=== PATIENT | female | born 1980 | race Two or more races ===

== ENCOUNTER 2020-01-01 06:10 | Day surgery (SDC) | payer OTHER ==
[~2020-01-01 06:10] MED LIST: INTEGRA PLUS C1 EACH PO
[2020-01-01] MEDS ORDERED: Tylenol #3 PO (17:20)
[2020-01-01] MEDS ORDERED: MORGIDOX100 MG PO (17:20)
== END 2020-01-01 20:45 | disposition home or self-care (01) ==
LOC: CIR.AMB 06:10
PROVIDERS: ATTEND Obstetrics & Gynecology
DX: D25.0 Submucous leiomyoma of uterus (principal); N71.1 Chronic inflammatory disease of uterus; N84.0 Polyp of corpus uteri; Z20.828 Contact with and (suspected) exposure to other viral communicable diseases

== ENCOUNTER 2020-09-16 11:24 | Inpatient (IN) | payer OTHER ==
[~2020-09-16 11:24] MED LIST changes: +ADIPEX-P37.5 MG PO; +MORGIDOX100 MG PO; +PROTONIX20 MG PO; +Tylenol #3 PO
[2020-09-17] MEDS ORDERED: NAPR500T14 PO (08:44)
[2020-09-17] MEDS ORDERED: Tylenol #3 PO (08:44)
== END 2020-09-17 10:50 | disposition home or self-care (01) | DRG 743 ==
LOC: CIR.AMB 11:24 → SURH 23:09 → O/R 23:09
PROVIDERS: ADMIT Obstetrics & Gynecology; ATTEND Obstetrics & Gynecology
PROC: 0UT2FZZ Resection of Bilateral Ovaries, Via Natural or Artificial Opening With Percutaneous Endoscopic Assistance (ICD-10-PCS; 2020-09-16)
PROC: 0UT7FZZ Resection of Bilateral Fallopian Tubes, Via Natural or Artificial Opening With Percutaneous Endoscopic Assistance (ICD-10-PCS; 2020-09-16)
PROC: 0UQF4ZZ Repair Cul-de-sac, Percutaneous Endoscopic Approach (ICD-10-PCS; 2020-09-16)
PROC: 0USG4ZZ Reposition Vagina, Percutaneous Endoscopic Approach (ICD-10-PCS; 2020-09-16)
PROC: 0TJB8ZZ Inspection of Bladder, Via Natural or Artificial Opening Endoscopic (ICD-10-PCS; 2020-09-16)
PROC: 0UT9FZZ Resection of Uterus, Via Natural or Artificial Opening With Percutaneous Endoscopic Assistance (ICD-10-PCS; principal; 2020-09-16 12:45)
DX: N72 Inflammatory disease of cervix uteri (principal); D25.1 Intramural leiomyoma of uterus; D25.2 Subserosal leiomyoma of uterus; D26.1 Other benign neoplasm of corpus uteri; N81.11 Cystocele, midline; D50.0 Iron deficiency anemia secondary to blood loss (chronic); N94.5 Secondary dysmenorrhea; N92.0 Excessive and frequent menstruation with regular cycle